=== PATIENT | male | born 1955 ===

== ENCOUNTER 2024-06-23 13:48 | Inpatient (IN) | payer MEDICARE ==
[2024-06-23] MEDS ORDERED: 50% Dextrose in Water 50 ML Syringe IVPUSH PRN (14:29)
[2024-06-23] MEDS ORDERED: Glucagon,Human Recombinant 1 MG Vial IM PRN (14:29)
[2024-06-23] MEDS: Insulin Lispro 100 Unit/ML 3 ML KwikPen SUBCUT SCH (17:45)
[2024-06-23] MEDS: Cyanocobalamin (Vitamin B12) 1,000 MCG Tab PO SCH (20:43)
[2024-06-23] MEDS: Beta-Carotene (Vitamin A) w/Vitamin C & E plus Minerals Tab PO SCH (20:43)
[2024-06-23] MEDS: Acetaminophen 500 MG Tab PO SCH (20:43)
[2024-06-23] MEDS ORDERED: Insulin Glargine,Human Rec. Analog 100 Units/ML 3 ML Pen SUBCUT ONE (20:50)
[2024-06-23] MEDS: Insulin Glargine,Human Rec. Analog 100 Units/ML 3 ML Pen SUBCUT SCH (20:51)
[2024-06-24] MEDS: Levothyroxine 50 MCG Tab PO SCH (05:47)
[2024-06-24] MEDS: Rosuvastatin 20 MG Tab PO SCH (08:36)
[2024-06-24] MEDS: DAPAGLIFLOZIN PROPANEDIOL 5 MG PO SCH (08:36)
[2024-06-24] MEDS: Aspirin 81 MG Tab.Chew PO SCH (08:36)
[2024-06-24] MEDS: Loratadine 10 MG Tab PO SCH (08:36)
[2024-06-24] MEDS: Lisinopril 20 MG Tab PO SCH (08:37)
[2024-06-24] MEDS: Clopidogrel 75 MG Tab PO SCH (08:37)
[2024-06-24] MEDS: amLODIPine 5 MG Tab PO SCH (08:37)
[2024-06-24] MEDS: Fenofibrate Nanocrystallized 145 MG Tab PO SCH (08:38)
[2024-06-24] MEDS: Metoprolol Succinate 50 MG Tab.ER PO SCH (08:38)
[2024-06-24] MEDS: Cholecalciferol (Vitamin D3) 25 MCG Tab PO SCH (08:40)
[2024-06-25] MEDS: traMADol 50 MG Tab PO PRN (14:48)
[2024-06-27] MEDS: Cyanocobalamin (Vitamin B12) 500 MCG Tab PO SCH (20:42)
[2024-06-28] MEDS: Cyanocobalamin (Vitamin B12) 1,000 MCG Tab PO SCH (20:51)
[2024-06-29] MEDS: Melatonin 3 MG Tab PO PRN (22:04)
[2024-06-30] MEDS: Insulin Glargine,Human Rec. Analog 100 Units/ML 3 ML Pen SUBCUT SCH (21:10)
[2024-07-01] MEDS: Zolpidem 5 MG Tab PO PRN (21:18)
[2024-07-02] MEDS: Insulin Glargine,Human Rec. Analog 100 Units/ML 3 ML Pen SUBCUT SCH (20:23)
[2024-07-07] MEDS: Acetaminophen 325 MG Tab PO PRN (16:41)
[2024-07-07] MEDS: Zolpidem 5 MG Tab PO SCH (18:17)
[2024-07-08] MEDS: Polyethylene Glycol 3350 Powder 17 GM Packet PO PRN (13:14)
[2024-07-12] MEDS: Beta-Carotene (Vitamin A) w/Vitamin C & E plus Minerals Tab PO SCH (17:36)
[2024-07-12] MEDS: Insulin Glargine,Human Rec. Analog 100 Units/ML 3 ML Pen SUBCUT SCH (17:36)
[2024-07-12] MEDS: Cyanocobalamin (Vitamin B12) 1,000 MCG Tab PO SCH (17:37)
[2024-07-12] MEDS: Acetaminophen 500 MG Tab PO SCH (17:37)
[2024-07-12] MEDS: Zolpidem 5 MG Tab PO SCH (18:49)
[2024-07-13] MEDS: Melatonin 3 MG Tab PO PRN (21:53)
[2024-07-16] MEDS ORDERED: Insulin Glargine,Human Rec. Analog 100 Units/ML 3 ML Pen SUBCUT ONE (17:26)
[2024-07-17] MEDS: Citalopram 10 MG Tab PO SCH (17:50)
== END 2024-07-21 10:40 | disposition home or self-care (01) | DRG 57 ==
LOC: FB.MS 13:48
PROVIDERS: ADMIT Internal Medicine; ATTEND Family Medicine
DX: I69.354 Hemiplegia and hemiparesis following cerebral infarction affecting left non-dominant side (principal); F01.A3 Vascular dementia, mild, with mood disturbance; F01.A4 Vascular dementia, mild, with anxiety; I69.392 Facial weakness following cerebral infarction; Z66 Do not resuscitate; N18.32 Chronic kidney disease, stage 3b; E11.22 Type 2 diabetes mellitus with diabetic chronic kidney disease; I12.9 Hypertensive chronic kidney disease with stage 1 through stage 4 chronic kidney disease, or unspecified chronic kidney disease; E03.9 Hypothyroidism, unspecified; H54.7 Unspecified visual loss; E78.00 Pure hypercholesterolemia, unspecified; I44.0 Atrioventricular block, first degree; I48.91 Unspecified atrial fibrillation; F43.21 Adjustment disorder with depressed mood; Z79.4 Long term (current) use of insulin; Z98.890 Other specified postprocedural states; Z90.49 Acquired absence of other specified parts of digestive tract
CPT/HCPCS: 97032-GO; 97110-GO; 97110-GP; 97112-GO; 97112-GP; 97116-GP; 97140-GP; 97530-GO; 97530-GP; 97535-GO; 97542-GO; 97763-GO; 99305; 99307; 99308; 99309; 99315; A9270-GY; G0283-GO; J1815; J1815-GY